=== PATIENT | female | born 1975 | race Caucasian/White ===

== ENCOUNTER 2024-04-14 19:24 | Emergency (ER) | payer OTHER, SELFPAY ==
[2024-04-14 19:27] VITALS: BP 122/64
[2024-04-14 19:43] VITALS: BP 107/74
--- NOTE | 2024-04-14 19:52 | ED.GENMED ---
History of Present Illness
General
Chief Complaint: Cardiac Symptoms
Time Seen by Provider: 04/14/24 19:38
Travel History
Have you had any contact with someone who has COVID-19?: No
Do you have any symptoms of coronavirus? Fever > 100 degrees, chills, cough, shortness of breath, sore throat, loss of taste or smell, muscle aches, or headache?: No
History of Present Illness
History of Present Illness:
HPI: At about 7 PM tonight, approximately 1 hour ago, the patient had abrupt onset chest discomfort to the point that she felt she was going to pass out. The pain radiated down into the abdomen. Currently her symptoms have resolved. She took a
pill from a blister pack that she cannot clearly identify because of 'nitric acid'. She had a similar episode about a year ago that lasted about 24 hours. She did not seek medical attention at that time. Although symptoms started abruptly, her
symptoms have resolved.
EXAM:
GENERAL: Well appearing in no distress
HEENT: Moist oral mucosa
CARDIOVASCULAR: No murmurs, normal heart rate, regular rhythm, No chest wall tenderness
PULMONARY: No respiratory distress, breath sounds are clear and equal
ABDOMEN: Soft with no peritoneal signs, no tenderness specifically no upper abdominal tenderness
NEUROLOGIC: Excellent strength all extremities, no coordination deficits
PSYCHIATRIC: Appropriate mental status, normal insight and judgement, she appears somewhat anxious
EXTREMITIES: Nontender, no edema, moves all extremities equally
SKIN: No rash, no lesions
TIME OF INITIAL ENCOUNTER: 8 PM
NUMBER AND COMPLEXITY OF PROBLEMS ADDRESSED AT THE ENCOUNTER
� Chronic conditions affecting care: Has had COVID in the past has had carpal tunnel syndrome
� Acute Exacerbation and/or Progression of Chronic Illness: This is an acute problem
� Differential Diagnosis includes: ACS, anxiety, vasovagal syncope, dysrhythmia
AMOUNT AND/OR COMPLEXITY OF DATA TO BE REVIEWED AND ANALYZED
� I performed an independent evaluation of and my interpretation is:
EKG: Sinus 64, normal axis, no acute ST abnormality, no old to compare
CT:
X-rays: Chest x-ray shows no acute abnormality
Laboratory Studies: White count 10.9, hemoglobin normal, chemistries remarkable for potassium of 2.8, initial troponin negative
Other:
� Review of other/old records: No old records available for review in [facility] however she did have a knee x-ray in 2017 which was normal
� Clinical information was obtained by an independent historian: I spoke to family at bedside
� Prescriptions/Medications Considered but not given:
� Further testing considered but not performed:
RISK OF COMPLICATIONS AND/OR MORBIDITY OR MORTALITY OF PATIENT MANAGEMENT
� Social determinants of health affecting care: States she does not have medical insurance
� Discussion with other providers:
� Escalation of care including admission/observation vs risk of discharge considered: The patient's chest pain greatly improved without intervention even before arrival. The pain was described as relatively severe but not
exertional and she has no other cardiac risk factors. Troponin negative x 2. Chest x-ray unremarkable. We talked about the possibly of a GI etiology as well and recommended that she takes a PPI. I have also given the contact information for
local digital assistant. Potassium found to be low, she has not had diarrhea recently.
Phy Exam
Physical Exam
Physical Exam:
See HPI
Course
Orders/Labs/Results
Orders:
Orders
04/14/24 19:24
Electrocardiogram (*1) Urgent
Reason for Study: Chest Pain
EKG- Treatment ONCE
Test Result ONCE
04/14/24 19:48
CMP [Comprehensive Metabolic Panel] Urgent
Complete Blood Count/With Diff Urgent
HCG, Serum Qualitative Screen Urgent
Troponin I Urgent
04/14/24 20:00
0.9% Sodium Chloride 1000 ml [Nss] 1,000 ml IV BOLUS
04/14/24 20:55
CR Chest - 2 Views Urgent
Comment:
Reason For Exam: cp sob
04/14/24 21:53
Troponin I Urgent
04/14/24 21:59
Potassium Chloride Powder [Klor-Con] 60 meq PO NOW STA
Abnormal Lab Results
04/14/24
19:48
WBC 10.9 H 10^3/uL
(4.8-10.8)
MCH 31.9 H pg
(27.0-31.0)
Absolute Neuts (auto) 9.0 H 10^3/uL
(1.4-6.5)
Absolute Lymphs (auto) 1.1 L 10^3/uL
(1.2-3.4)
Neutrophils % 83.2 H %
(42.2-75.2)
Lymphocytes % 10.0 L %
(20.5-51.1)
Potassium 2.8 L mmol/L
(3.5-5.1)
Glucose 130 H mg/dl
(70-99)
AST 40 H U/L
(14-36)
04/14/24 19:48
04/14/24 19:48
Vital Signs
Initial and Last Documented VS:
Initial Vital Signs
Temp Pulse Resp BP Pulse Ox
98.6 F 66 24 122/64 99
04/14/24 19:27 04/14/24 19:27 04/14/24 19:27 04/14/24 19:27 04/14/24 19:27
Last Documented Vital Signs
Temp Pulse Resp BP Pulse Ox
98.6 F 89 19 119/66 100
04/14/24 19:27 04/14/24 21:07 04/14/24 21:07 04/14/24 21:07 04/14/24 20:45
*Critical Care Note
Total Time (30-74mins, 75-104mins- exclusive of procedures): Not Applicable
ED Attending Note
-
Portions of this chart may have been created with voice recognition software.� Occasional wrong word or��sound alike� substitutions may have occurred due to the inherent limitations of voice recognition software.
Discharge Plan
Departure
Patient Disposition: Home (Routine Discharge)
Date of Disposition: 04/14/24
Time of Disposition: 22:27
Patient with high blood pressure during this ER visit?: Yes
Discharge Problem:
Chest pain
Instructions: Chest Pain [facility] Follow Up, BLOOD PRESSURE
Referrals:
Tierney Phillips MD [Active] - Follow up in 2-3 days
Joseph Vee MD [Family Provider] -
Anam Garvey MD [Active] -
Activity Restrictions/Additional Instructions:
The cause of your chest pain is unclear. Cardiac blood work x 2 is normal. Chest x-ray was negative. Your potassium level was low and we did replace this. Consider eating foods higher in potassium such as potatoes, tomatoes, bananas. I also
recommend that you follow-up with a digital assistant�somebody from [facility] should be calling you for follow-up. I have also given the contact information for a local GI doctor. I recommend that you take a 2-week course of
[id number] omeprazole in case her symptoms could be related to excess stomach acid.
Interventions
Interventions:
*Risk Screen - Suicide Last Done: 04/14/24 19:27
*Neglect/Abuse Screening Last Done: 04/14/24 19:27
ED- Pulmonary Assessment Last Done: 04/14/24 19:45
ED- Cardiac Assessment Last Done: 04/14/24 19:45
Discharge Date and Time
Print Language: SYRIAN
[2024-04-14 19:57] LABS: % Basophils 0.4 % (0-2); % Eosinophils 0.6 % (0-6); % Immature Granulocytes 0.4 % (0-0.5); % Monocytes 5.4 % (1.7-9.3); % Neutrophils 83.2 % (42.2-75.2); Absolute Eosinophils 0.1 10^3/uL (0-0.7); Absolute Lymphocytes 1.1 10^3/uL (1.2-3.4); Absolute Monocytes 0.6 10^3/uL (0.1-0.6); Hematocrit 38.2 % (37.0-47.0); Mean Corp Hgb Conc. 36.6 g/dL (33.0-37.0); Mean Corpuscular Hgb 31.9 pg (27.0-31.0); Mean Platelet Volume 10.2 fL (7.4-10.4); Nucleated Red Blood Cells % 0 %; Platelet Count 220 10^3/uL (130-400); Red Blood Cell Count 4.39 10^6/uL (4.20-5.40); White Blood Cell Count 10.9 10^3/uL (4.8-10.8)
[2024-04-14 20:00] VITALS: BP 113/74
[2024-04-14 20:04] LABS: HCG, Serum Qualitative Screen Negative
[2024-04-14 20:06] LABS: ALT (SGPT) 20 U/L (0-35); AST (SGOT) 40 U/L (14-36); Albumin 3.8 g/dl (3.5-5.0); Alkaline Phosphatase 55 U/L (38-126); Blood Urea Nitrogen 11 mg/dl (7-17); Calcium 9.2 mg/dl (8.4-10.2); Carbon Dioxide 27 mmol/L (22-30); Chloride 101 mmol/L (98-107); Glucose 130 mg/dl (70-99); Potassium 2.8 mmol/L (3.5-5.1); Sodium 137 mmol/L (135-145); Total Bilirubin 1.3 mg/dl (0.2-1.3); Total Protein 6.8 g/dl (6.3-8.2); eGFR > 60.00
[2024-04-14 20:19] LABS: Troponin I < 0.012 ng/ml
[2024-04-14] MEDS: NSS 1000 IV (20:20)
[2024-04-14 21:07] VITALS: BP 119/66
[2024-04-14] MEDS: KLOR-CON 60 MEQ PO (22:15)
[2024-04-14 22:22] LABS: Troponin I < 0.012 ng/ml
[2024-04-14 22:37] VITALS: BP 110/71
== END 2024-04-14 22:43 | disposition home or self-care (01) ==
LOC: EMR 19:24
PROVIDERS: Emergency Medicine; EMERGENCY PHYSICIAN Emergency Medicine; FAMILY PHYSICIAN Family Medicine
DX: R07.89 Other chest pain (principal)
CPT/HCPCS: 99283; 96360; 71046; 80053; 84484; 84703; 85025; 93005

== ENCOUNTER → 2024-05-11 07:22 | Outpatient (REF) | payer OTHER, SELFPAY | LOC: RCS 07:22 | PROVIDERS: ATTENDING PHYSICIAN Internal Medicine Cardiovascular Disease; FAMILY PHYSICIAN Family Medicine | DX: R07.9 Chest pain, unspecified (principal) | CPT/HCPCS: 93017 ==

== ENCOUNTER → 2024-05-26 14:55 | Outpatient (REF) | payer OTHER, SELFPAY | LOC: RCS 14:55 | PROVIDERS: ATTENDING PHYSICIAN Internal Medicine Cardiovascular Disease; FAMILY PHYSICIAN Family Medicine | DX: R07.9 Chest pain, unspecified (principal) | CPT/HCPCS: 93306 ==